=== PATIENT | male | born 1980 | race Caucasian/White ===

== ENCOUNTER 2024-09-01 19:36 | Emergency (ER) | payer SELFPAY ==
--- NOTE | 2024-09-01 19:43 | ED_ITS ---
HPI - Chest Pain General Chief Complaint: Anxiety Stated Complaint: chest pain from [facility]pd booking Time Seen by Provider: 09/01/24 19:40 Source: patient Mode of arrival: ambulatory Limitations: no limitations History of Present Illness ED Provider: HPI narrative: Patient's police custody with increased anxiety and panic attack with no cardiac history just prior to arrival patient fell chest pain which is sharp in nature lasted only for few minutes no chest pain at this time patient feel very anxious never had similar pain in the past no radiation of the pain patient did have some tingling in the left hand multiple complaints EKG done was without any ischemic changes no cocaine use Related Data Allergies Allergy/AdvReac Type Severity Reaction Status Date / Time No Known Allergies Allergy Verified 09/01/24 19:52 Review of Systems Review of Systems: Yes all other systems are reviewed and are negative [facility] Social History Social History Smoked in Last 30 Days: No Use of substances other than those prescribed or required for medical reasons: No Advance Directives: No Advance Directives Information Provided: No Physical Exam Vital Signs: Vital Signs: Last Vital Signs Temp 98.0 F 09/01/24 21:01 Pulse 56 09/01/24 21:01 Resp 16 09/01/24 21:01 BP 107/58 L 09/01/24 21:01 Pulse Ox 97 09/01/24 21:01 O2 Del Method Room Air 09/01/24 21:01 BMI result Body Mass Index 25.1 Appearance: Alert. Oriented X3. No acute distress. Anxious Eyes: PERRLA, No Nystagmus ENT: Pharynx normal. Oral Mucosa moist Neck: Normal inspection. Neck supple. CVS: Normal heart rate and rhythm. Pulses normal. Respiratory: No respiratory distress. Equal air entry bilateral, no wheezing/rales/rhonchi Abdomen: Soft and nontender. Bowel sounds are present, no mass palpable, no CVA tenderness Skin: Skin warm and dry. Normal skin color. Normal skin turgor. Extremities: No lower extremity edema. No calf tenderness Neuro: Oriented X 3. No motor deficit. No sensory deficit.No cerebellar signs , cranial nerves II-XII intact Medical Decision Making Medical Decision Making [facility] Narrative: Patient has atypical chest pain with anxiety/panic attack EKG troponin negative advised to follow with PCP as needed heart score of 1 Lab Data MDM Lab Attestation statement: I reviewed the patient's lab results. Labs: Lab Results 09/01/24 Range/Units 20:07 Troponin I High Sens < 2.7 (<3.5-35.0) ng/L Independent Interpretation I performed an independent interpretation of an: EKG Interpretation: Sinus bradycardia heart rate 55 beats per minute normal interval normal axis no acute ST changes no acute ischemia Scores Heart Score History: -0- slightly suspicious ECG: -0- normal Age: -1- >45 - <65 Risk factory: -0- no risk factors known Troponin: -0- < or = normal limit Score: 1 Risk: 1.7% Discharge Plan Discharge Clinical Impression: Acute anxiety, Atypical chest pain Patient Disposition: Home, Self-Care Instructions: Noncardiac Chest Pain (ED), Panic Attack (ED) Additional Instructions: Your chest pain is likely from anxiety/panic attack Follow up with your PCP Interventions: ED Discharge Assessment Last Done: 09/01/24 21:01 Discharge Date/Time: 09/01/24 21:02 Print Language: Maldivian
--- NOTE | 2024-09-01 19:47 | ECG_ITS ---
Test Reason : ANXIETY, CHEST PAIN Blood Pressure : */* mmHG Vent. Rate : 55 BPM Atrial Rate : 55 BPM P-R Int : 160 ms QRS Dur : 98 ms QT Int : 394 ms P-R-T Axes : 57 45 41 degrees QTcB Int : 376 ms Sinus bradycardia Otherwise normal ECG No previous ECGs available Referred By: Adam Schmitz Electronically Signed By: ATILIO SINGH MD
[2024-09-01 19:48] VITALS: BP 130/95; PULSE 64; RESP 18; TEMP 36.8; O2SAT 97; BMI 25.1
[2024-09-01 20:33] LABS: Troponin-I High Sensitivity < 2.7 ng/L (<3.5-35.0)
[2024-09-01 20:58] VITALS: BP 107/58; PULSE 56; RESP 16; TEMP 36.7; O2SAT 97
[2024-09-01 21:01] VITALS: BP 107/58; PULSE 56; RESP 16; TEMP 36.7; O2SAT 97
== END 2024-09-01 21:02 | disposition home or self-care (01) ==
PROVIDERS: Emergency Provider Internal Medicine; PCP Nurse Practitioner Adult Health
DX: R07.89 Other chest pain (principal); F41.9 Anxiety disorder, unspecified
CPT/HCPCS: 36415; 84484; 93005; 99283; 99285

== ENCOUNTER → 2024-09-01 19:47 | Outpatient (BNV) | payer OTHER, SELFPAY | PROVIDERS: Emergency Provider Internal Medicine; PCP Nurse Practitioner Adult Health; Visit Provider Internal Medicine Cardiovascular Disease | DX: R00.1 Bradycardia, unspecified (principal) | CPT/HCPCS: 93010 ==